=== PATIENT | female | born 1950 ===

== ENCOUNTER → 2016-12-30 | Outpatient (CLI) | payer OTHER | LOC: HYPER 07:05 | DX: S81.801A Unspecified open wound, right lower leg, initial encounter (principal); I87.2 Venous insufficiency (chronic) (peripheral); I83.813 Varicose veins of bilateral lower extremities with pain; I10 Essential (primary) hypertension; Z72.89 Other problems related to lifestyle; X58.XXXA Exposure to other specified factors, initial encounter; Y93.9 Activity, unspecified; Y92.9 Unspecified place or not applicable; Y99.9 Unspecified external cause status ==